=== PATIENT | male | born 1980 ===

== ENCOUNTER → 2024-10-07 | Outpatient (CLI) | payer OTHER ==
[2024-10-07 10:18] VITALS: BP 147/89; PULSE 87; RESP 17
--- NOTE | 2024-10-07 16:16 | P.PAINPG ---
PQRS Measure Charge Sheet Comment: HISTORY OF PRESENT ILLNESS: A 44 yr old male as a referral from the [facility] presents today w severe and chronic neck pain > 1 yr secondary to radiculopathy, spondylosis and facet arthropathy without myelopathy for evaluation. Pt states pain level is provoked at 7 /10 in intensity, constant, localized in the cervical spine, predominantly axial, sore in character w occasional shooting pain towards the L shoulder and BL hands. Pain is provoked by rotation. Pain is alleviated by physician guided home exercises 5 times weekly since Fall 2023, medications, manual massage, repositioning and rest . Cervical disability score at 22. PMH: OA, HTN, Migraine, MDD/ Anxiety PSH: Denies SH: Negative x3 FH: Non contributory All: See list Meds: See list incl Lyrica, Ibu REVIEW OF ORGAN SYSTEMS: CONSTITUTIONAL: No fevers or chills. No recent weight loss. NEUROLOGICAL: + numbness and tingling along the distal extremities. No seizure disorders or headaches. MUSCULOSKELETAL: + pain PSYCHIATRIC: Denies current depression or suicidal thoughts. Physical Examinations : Constitutional : Cooperative , not in acute distress . Neurologic : Cranial nerve II to XII intact. No focal neurological deficits. Psychiatric : alert & oriented x 3. Matching mood & appropriate affect. Judgment & insight intact. Musculoskeletal : Cervical Spine Motor strength in the deltoid and biceps: Normal right side. Normal Left side Motor strength biceps and the wrist extensors: Normal right side . Normal left side Motor strength in the triceps muscle: Normal right side. Normal left side Deep tendon reflexes: Normal at the biceps. Normal at Brachioradialis. Normal at triceps Vertebral body tenderness to deep palpation over C6 Cervical facet loading test: positive bilaterally Spurling test: positive L> R C6-C7 Neck distraction test: positive bilaterally Smiley sign: positive bilaterally Lumbar spine Motor strength lower extremities ,thigh and legs 5/5 Right side , 5/5 Left side Deep tendon reflexes : Normal Knee Jerk. Normal Ankle Jerk Vertebral body tenderness over Boss Test positive Lumbar facet Loading Test: positive Right / positive Left Range of motion of the lumbar spine Flexion 30 degrees, extension 10 degrees Straight Leg Raise test: Left/ Right positive at degrees Marie test: positive right / positive left. Severe tenderness over the Sacroiliac joint on the Right / Left sides Gaenslen test: positive bilaterally Seated flexion test: positive bilaterally. Sacral spine : Severe tenderness over the Sacroiliac joint: right side / left side Range of motion: Flexion of the lumbar spine <60 degrees Range of motion: Extension of the lumbar spine <20 degrees Gaenslen's Test positive Marie test: positive right side / left side Thigh Thrust Test Sacral Thrust Test Imaging: MRI non contrast cervical spine from 04/13/24 reviewed Assessment/ Plan : C4-C5/ C6-C7 radiculopathy Recommendation of TRUMAN C6-C7 #1. Risks, benefits of procedure discussed and patient verbalized understanding. Admits to anti- coagulant use or medical history of diabetes. Protocol for discontinuation/ continuation of medications jose procedure discussed. All questions answered. I have spent greater than 30 minutes on patient care today. Dr Kingsley was available by phone for the evaluation of this patient. The time was used to review the medical records including relevant urine studies and Prescription history (MAPs), review of the available imaging, evaluation and examination of the patient, coordination of care with the medical staff and if applicable referring physicians, as well as creation of the medical record Controlled Substance Measures - Controlled Substance Measures Is patient prescribed a controlled substance at discharge?: No
== END ==
LOC: PNWHC3 09:04
PROVIDERS: ATTEND Specialist
DX: M54.12 Radiculopathy, cervical region (principal)
CPT/HCPCS: 99203

== ENCOUNTER 2024-10-29 06:05 | Day surgery (SDC) | payer OTHER ==
[2024-10-28 08:31] VITALS: BMI 26.6
[~2024-10-29 06:05] MED LIST: LACTATED RINGERS 1,000 ML IV SCH
[2024-10-29 06:41] VITALS: RESP 18; TEMP 97.3
[2024-10-29] MEDS ORDERED: LACTATED RINGERS 1,000 ML IV SCH (07:00)
[2024-10-29] MEDS ORDERED: DEXAMETHASONE SOD PHOSPHATE 10 MG/ML 1 ML VIAL ONE (07:04)
[2024-10-29] MEDS ORDERED: IOPAMIDOL M200 10 ML VIAL ONE (07:04)
--- NOTE | 2024-10-29 07:15 | P.PCN ---
Date of Procedure: 10/29/24 Description of Procedure: Pre- and Post-operative Diagnosis: Cervical spondylosis without myelopathy, and cervical radiculopathy Procedure: C6-C7 Inter-Laminar Cervical Epidural Steroid Injection under biplanar fluoroscopy #1 Surgeon: Marcelino Mata Anesthesia: Local: 1% Lidocaine, IV sedation : None. Complications: None. Estimated blood loss: None Specimens removed: None Fluoroscopic image: saved to patient electronic medical records. Indications for Procedure: The patient has been suffering from neck pain and pain radiating to the upper extremity . Inadequate pain control with pharmacologic regimen. An inter-laminar approach cervical epidural steroid injection was scheduled for the patient. Procedure and Findings: The patient was seen and examined in the holding area. The written informed consent was obtained after explaining the risks, benefits, alternatives of the procedure to the patient. The patient was brought to the procedure room and was placed in the prone position on the operating table. A pillow was placed under the upper chest. Standard anesthesia monitoring was done through out the procedure. Timeout was completed. The skin preparation was done with ChloraPrep 1 and draping was done in usual sterile fashion. Sterile technique was observed throughout the procedure. Under fluoroscopic guidance, the C6-C7 inter-laminar space was identified. 3 ml of 1% Lidocaine was injected with a 25 gauge needle to achieve adequate local a nesthesia of the skin and subcutaneous tissue. A 20 gauge, 3.5 inch Tuohy type epidural needle was placed and gradually advanced up to the epidural space using loss of resistance technique and fluoroscopic guidance. No paresthesia was noted. A negative aspiration was confirmed and then 1 ml [id number] was injected. A good dye spread was seen in the epidural space and it was negative for any intrathecal, intraneural or intravascular spread. A total of 5 ml solution containing 10 mg Dexamethasone, and 4 ml preservative-free Normal Saline was injected slowly with intermittent aspiration.. The needle was removed intact, area was cleaned and bandage was applied. Disposition : The patient tolerated the procedure very well. The patient was transferred to the recovery room and remained stable until discharged home. The patient was given detailed discharge instructions for bleeding, infection, increased pain at the injection site, and was advised to seek immediate medical attention should significant side effects develop. The patient will be followed up with our Pain [facility] within 4 weeks for follow-up visit.
[2024-10-29 07:30] VITALS: BP 130/84; PULSE 70
--- NOTE | 2024-10-29 07:52 | FL ---
EXAMINATION TYPE: FL guided pain mgmt statistic DATE OF EXAM: 10/29/2024 CLINICAL INDICATION: Male, 44 years old with history of MARY; PHH, neck pain. TECHNIQUE: Fluoroscopy. COMPARISON: None. FINDINGS: Fluoroscopic guidance was provided during pain relief procedure performed by Dr. Leone . A total of 7.0 seconds of fluoroscopic time was utilized during the procedure and 3 spot images are acquired. Images acquired shows needle localization in the cervical spine with some degenerative yu nge present. Total DAP: [id number] mGym2. IMPRESSION: As Above. [facility], , 10/29/2024 7:50 AM
== END 2024-10-29 07:47 | disposition home or self-care (01) ==
LOC: ORPAIN 06:05
DX: M47.812 Spondylosis without myelopathy or radiculopathy, cervical region (principal); I10 Essential (primary) hypertension; M19.90 Unspecified osteoarthritis, unspecified site; F43.10 Post-traumatic stress disorder, unspecified; M92.529 Juvenile osteochondrosis of tibia tubercle, unspecified leg; Z79.899 Other long term (current) drug therapy
CPT/HCPCS: 62321; J1100; Q9966

== ENCOUNTER → 2024-11-13 | Outpatient (CLI) | payer OTHER ==
[2024-11-13 09:44] VITALS: BP 120/81; PULSE 76; RESP 18; TEMP 96.9
--- NOTE | 2024-11-13 15:47 | P.PAINPG ---
Objective - Vital Signs Vital signs: Vital Signs Temp 96.9 F L 11/13/24 09:37 Pulse 76 11/13/24 09:37 Resp 18 11/13/24 09:37 BP 120/81 11/13/24 09:37 Pulse Ox 98 11/13/24 09:37 FiO2 Intake & Output 11/12/24 11/13/24 11/13/24 18:59 06:59 18:59 Weight 84.368 kg PQRS Measure Charge Sheet Mode of Arrival: Ambulatory Comment: HISTORY OF PRESENT ILLNESS: A 44 yr old male presents today w severe and chronic neck pain > 1 yr secondary to radiculopathy, spondylosis and facet arthropathy without myelopathy for evaluation s/p TRUMAN C6-C7 #1. Pt states he experienced 50% pain relief x 2 wks s/p procedure. Pt states pain level is provoked at 2 /10 in intensity, constant, localized in the cervical spine, predominantly axial, sore in character w occasional shooting pain towards the L shoulder and BL hands. Pain is provoked by rotation. Pain is alleviated by physician guided home exercises 5 times weekly since Fall 2023, medications, manual massage, repositioning and rest . Interventional procedures include TRUMAN C6-C7 x1 Medications include Lyrica, Ibu REVIEW OF ORGAN SYSTEMS: CONSTITUTIONAL: No fevers or chills. No recent weight loss. NEUROLOGICAL: + numbness and tingling along the distal extremities. No seizure disorders or headaches. MUSCULOSKELETAL: + pain PSYCHIATRIC: Denies current depression or suicidal thoughts. Physical Examinations : Constitutional : Cooperative , not in acute distress . Neurologic : Cranial nerve II to XII intact. No focal neurological deficits. Psychiatric : alert & oriented x 3. Matching mood & appropriate affect. Judgment & insight intact. Musculoskeletal : Cervical Spine Motor strength in the deltoid and biceps: Normal right side. Normal Left side Motor strength biceps and the wrist extensors: Normal right side . Normal left side Motor strength in the triceps muscle: Normal right side. Normal left side Deep tendon reflexes: Normal at the biceps. Normal at Brachioradialis. Normal at triceps Vertebral body tenderness to deep palpation over C6 Cervical facet loading test: positive bilaterally Spurling test: positive L> R C6-C7 Neck distraction test: positive bilaterally Smiley sign: positive bilaterally Lumbar spine Motor strength lower extremities ,thigh and legs 5/5 Right side , 5/5 Left side Deep tendon reflexes : Normal Knee Jerk. Normal Ankle Jerk Vertebral body tenderness over Boss Test positive Lumbar facet Loading Test: positive Right / positive Left Range of motion of the lumbar spine Flexion 30 degrees, extension 10 degrees Straight Leg Raise test: Left/ Right positive at degrees Marie test: positive right / positive left. Severe tenderness over the Sacroiliac joint on the Right / Left sides Gaenslen test: positive bilaterally Seated flexion test: positive bilaterally. Sacral spine : Severe tenderness over the Sacroiliac joint: right side / left side Range of motion: Flexion of the lumbar spine <60 degrees Range of motion: Extension of the lumbar spine <20 degrees Gaenslen's Test positive Marie test: positive right side / left side Thigh Thrust Test Sacral Thrust Test Imaging: MRI non contrast cervical spine from 04/13/24 reviewed Assessment/ Plan : C4-C5/ C6-C7 radiculopathy Recommendation of medication management Diclofenac gel apply to AA BID for pain, Disp 1 tube w 1 RF. All questions answered. I have spent greater than 30 minutes on patient care today. Dr Kingsley was available by phone for the evaluation of this patient. The time was used to review the medical records including relevant urine studies and Prescription history (MAPs), review of the available imaging, evaluation and examination of the patient, coordination of care with the medical staff and if applicable referring physicians, as well as creation of the medical record - Pain Location Lower Back Non-Pharmacological Interventions: Heat Pharmacological Interventions: Medication PQRS Narrative: Blood Pressure 120/81 Pain Intensity [Lower Back] 1 Scale Used Numeric (1 - 10) Hx Alcohol Use (MH) No Home Medications: Ambulatory Orders Fremanezumab-Vfrm [Ajovy Syringe] 225 mg SQ Q30D 10/07/24 Losartan [Cozaar] 50 mg PO DAILY 10/07/24 Prochlorperazine [Compazine] 5 mg PO Q8HR PRN 10/07/24 Sertraline [Zoloft] 100 mg PO DAILY 10/07/24 Ubrogepant [Ubrelvy] 100 mg PO DIRECTED PRN 10/07/24 busPIRone HCl [Buspar] 10 mg PO BID 10/07/24 diphenhydrAMINE [Benadryl] 25 mg PO HS PRN 10/07/24 traZODone HCL 100 mg PO HS 10/07/24 Pregabalin [Lyrica] 75 mg PO DAILY 10/23/24 Unk Omeprazole 1 tab PO AC-TID 10/23/24 amLODIPine 10 mg PO DAILY 10/23/24 Diclofenac Sodium Gel [Voltaren 1% Gel] 50 gm TOPICAL BID 30 Days #1 each 11/13/24 Controlled Substance Measures - Controlled Substance Measures Is patient prescribed a controlled substance at discharge?: No
== END ==
LOC: PNWHC3 09:18
PROVIDERS: ATTEND Specialist
DX: M54.12 Radiculopathy, cervical region (principal); F12.90 Cannabis use, unspecified, uncomplicated
CPT/HCPCS: 99212

== ENCOUNTER → 2025-01-21 | Outpatient (CLI) | payer OTHER ==
[2025-01-21 14:37] VITALS: BP 132/86; PULSE 92; RESP 12; TEMP 98.1
--- NOTE | 2025-01-21 15:28 | P.SLEEP ---
History of Present Illness H&P Date: 01/21/25 This is a 44-year-old , [place] ancestry, who has served in the [employer] for a total of 20 years and the patient has been in combat operations overseas. For now, the patient has chronic anxiety/depression/PTSD that has been managed through the [facility]. The patient suffers from migraines and he also has chronic cervical degenerative disc disease with chronic neck pain and radiculopathy. He suffers from insomnia in addition. His current medications include Zoloft for PTSD and depression. The patient was also given trazodone and diphenhydramine for sleep induction. He takes Lyrica for chronic neuropathy and pain and Ajovy for migraines. He was also placed on propranolol for migraine prophylaxis. The patient feels fatigued and tired all the time. He snores and he has been told to quit breathing at night. He describes his sleep to be quite fragmented. He goes to bed at around 12:30 AM and he gets out of bed at 5:30 AM. His sleep is broken and he wakes up on multiple occasions sometimes choking and gasping for air. He is restless during sleep. He sweats. He has flashbacks and nightmares during which he talks and this occurs approximately 2-3 times a week. He has also experienced sleep paralysis where he has noted to be awake but cannot move and this typically occurs around once or twice a week. He sleeps on his side and stomach. Does not take any naps during the day. His current [place] score is at 7. No hallucinations. No cataplexy. No reported substance abuse. He does not smoke. Does not use alcohol. No history of any head trauma. No 69 motor vehicle accidents because of feeling drowsy or sleepy. No reported nocturia. No palpitations or heartburn or shortness of breath during sleep. Is coming in for further advice regarding his sleep quality and is concerned about sleep apnea in addition. Review of Systems Constitutional: Reports daytime sleepiness, Reports fatigue Eyes: denies as per HPI, denies blurred vision, denies bulging eye, denies decreased vision, denies diplopia, denies discharge, denies dry eye, denies irritation, denies itching, denies pain, denies photophobia, denies loss of peripheral vision, denies loss of vision, denies tunnel vision/blind spots Ears: deny: decreased hearing, ear discharge, earache, tinnitus Ears, nose, mouth and throat: Reports as per HPI Breasts: absent: as per HPI, gynecomastia Cardiovascular: Reports as per HPI Respiratory: Reports as per HPI Gastrointestinal: Reports as per HPI Genitourinary: Reports as per HPI Musculoskeletal: Reports as per HPI, Reports leg numbness/tingling Musculoskeletal: absent: ankle pain, ankle stiffness, ankle swelling, as per HPI, elbow pain, elbow stiffness, elbow swelling, foot pain, foot stiffness, foot swelling, hand pain, hand stiffness, hand swelling, hip pain, hip stiffness, hip swelling, knee pain, knee stiffness, knee swelling, shoulder pain, shoulder stiffness, shoulder swelling, wrist pain, wrist stiffness, wrist swelling Integumentary: Reports as per HPI Neurological: Reports migraines Psychiatric: Reports anxiety, Reports change in sleep habits, Reports d epression, Reports hypersomnia, Reports sleep disturbances Endocrine: Reports as per HPI, Reports fatigue Hematologic/Lymphatic: Reports as per HPI Allergic/Immunologic: Reports as per HPI Past Medical History Past Medical History: GERD/Reflux, Hypertension, Osteoarthritis (OA) Additional Past Medical History / Comment(s): nerve pain from neck goes down back and arms. migraines. has appt for sleep study History of Any Multi-Drug Resistant Organisms: None Reported Additional Past Surgical History / Comment(s): rt ankle reconstruction Past Anesthesia/Blood Transfusion Reactions: No Reported Reaction Past Psychological History: Anxiety, Depression, PTSD Smoking Status: Vaper Past Alcohol Use History: None Reported Additional Past Alcohol Use History / Comment(s): 1 vape q 10 days. no alcohol since 09/2024 Additional Drug Use History / Comment(s): cbd vape. pt aware not to use 24 hrs before procedure. - Past Family History Father Family Medical History: CVA/TIA, Diabetes Mellitus Mother Family Medical History: No Reported History Medications and Allergies Home Medications Medication Instructions Recorded Confirmed Type Fremanezumab-Vfrm [Ajovy Syringe] 225 mg SQ Q30D 10/07/24 01/21/25 History Losartan [Cozaar] 50 mg PO DAILY 10/07/24 01/21/25 History Prochlorperazine [Compazine] 5 mg PO Q8HR PRN 10/07/24 01/21/25 History Sertraline [Zoloft] 100 mg PO DAILY 10/07/24 01/21/25 History busPIRone HCl [Buspar] 10 mg PO BID 10/07/24 01/21/25 History diphenhydrAMINE [Benadryl] 25 mg PO HS PRN 10/07/24 01/21/25 History traZODone HCL 100 mg PO HS 10/07/24 01/21/25 History Pregabalin [Lyrica] 75 mg PO DAILY 10/23/24 01/21/25 History amLODIPine 10 mg PO DAILY 10/23/24 01/21/25 History Diclofenac Sodium Gel [Voltaren 1% 50 gm TOPICAL BID 30 Days #1 each 11/13/24 01/21/25 Rx Gel] Famotidine [Pepcid] 20 mg PO DAILY 01/21/25 01/21/25 History Pantoprazole [Protonix] 40 mg PO BID 01/21/25 01/21/25 History Propranolol HCl [Inderal] 60 mg PO DAILY 01/21/25 01/21/25 History Allergies Allergy/AdvReac Type Severity Reaction Status Date / Time No Known Allergies Allergy Verified 10/29/24 06:41 Physical Exam Vitals: Vital Signs Temp Pulse Resp BP Pulse Ox 01/21/25 14:36 98.1 F 92 12 132/86 97 Intake and Output 01/20/25 01/21/25 01/21/25 22:59 06:59 14:59 Other: Weight 87.543 kg The patient appeared well nourished and normally developed. Vital signs as documented. The patient has a body mass index of 27.6. His current weight is 193 Head exam is unremarkable. No scleral icterus or corneal arcus noted. Neck is without jugular venous distension, thyromegaly, or carotid bruits. Carotid upstrokes are brisk bilaterally. Mallampati class IV with crowding of the posterior pharynx. Lungs are clear to auscultation and percussion. Cardiac exam reveals the PMI to be normally sized and situated. Rhythm is regular. First and second heart sounds normal. No murmurs, rubs or gallops. Abdominal exam reveals normal bowel sounds, no masses, no organomegaly and no aortic enlargement. Extremities are nonedematous and both femoral and pedal pulses are normal. Examination of the skin revealed no evidence of significant rashes, suspicious appearing nevi or other concerning lesions. Neurologically, the patient is awake and alert and the patient does not have any focal neurological deficit. Cranial nerves are essentially intact. Assessment and Plan Plan: Chronic fatigue/daytime sleepiness with an [place] score of 7 Chronic sleep onset insomnia, essential related to his underlying mental health and psychiatric/mood disorders which include a combination of anxiety and depression and PTSD. PTSD due to service and combat operations. The patient is a and served in the [employer] for a total of 20 years. He continues to have nightmares and occasional flashbacks. Noted the patient was also given propranolol for migraine prophylaxis which could potentially contribute to development of nightmares. He is currently on Zoloft. Migraines, currently on a combination of Ajovy and propranolol Chronic cervical disc disease and radiculopathy with ongoing pain, maintained on Lyrica Osteoarthritis Hypertension Acid reflux Plan The patient sleep disturbances and poor sleep quality is multifactorial. Of concern is history of PTSD which by itself can cause significant sleep disturbances specially with associated with obstructive sleep apnea. The patient has chronic anxiety, nightmares, sleep disturbance and he has utilized sleep aids including diphenhydramine and trazodone and he continues to have significantly disrupted sleep pattern. Noted PTSD by itself can cause hyperarousal and sleep fragmentation and disruption in normal sleep architecture and this in turn can contribute to the onset and development of obstructive sleep apnea. Based on all this, the patient needs to be further studied in polysomnography will be ordered. Meanwhile, he has other comorbidities which include migraine. Utilization of beta-shu such as propranolol may contribute to his nightmares in addition. The patient was asked to maintain a regular sleep schedule, optimize sleep hygiene measures. He will be kept on the same medication and a polysomnography will be ordered to investigate his condition further I will make further recommendations based on those results. Sleep Note - Sleep Data ESS Total: 7 - Sleep Note Sleep Note: Temperature: 98.1 F Pulse Rate: 92 Respiratory Rate: 12 Blood Pressure: 132/86 SpO2: 97 Height: 5 ft 10 in Weight: 87.543 kg BMI: Neck Circumference: 17
== END ==
LOC: 3 N SLEEP 13:40
PROVIDERS: ATTEND Internal Medicine Critical Care Medicine
DX: G47.00 Insomnia, unspecified (principal); R53.83 Other fatigue; F32.A Depression, unspecified; F41.9 Anxiety disorder, unspecified; F43.10 Post-traumatic stress disorder, unspecified; M50.10 Cervical disc disorder with radiculopathy, unspecified cervical region; M19.90 Unspecified osteoarthritis, unspecified site; I10 Essential (primary) hypertension; K21.9 Gastro-esophageal reflux disease without esophagitis; F12.90 Cannabis use, unspecified, uncomplicated; Z79.899 Other long term (current) drug therapy
CPT/HCPCS: 99211

== ENCOUNTER 2025-03-10 19:57 | Outpatient (CLI) | payer OTHER ==
--- NOTE | 2025-03-21 00:08 | P.PCN ---
Date of Procedure: 03/10/25 Operative Findings: Polysomnography report Pertinent history This is a 44-year-old , [place] ancestry, who has served in the [employer] for a total of 20 years and the patient has been in combat operations overseas. For now, the patient has chronic anxiety/depression/PTSD that has been managed through the [facility]. The patient suffers from migraines and he also has chronic cervical degenerative disc disease with chronic neck pain and radiculopathy. He suffers from insomnia in addition. His current medications include Zoloft for PTSD and depression. The patient was also given trazodone and diphenhydramine for sleep induction. He takes Lyrica for chronic neuropathy and pain and Ajovy for migraines. He was also placed on propranolol for migraine prophylaxis. The patient feels fatigued and tired all the time. He snores and he has been told to quit breathing at night. He describes his sleep to be quite fragmented. He goes to bed at around 12:30 AM and he gets out of bed at 5:30 AM. His sleep is broken and he wakes up on multiple occasions sometimes choking and gasping for air. He is restless during sleep. He sweats. He has flashbacks and nightmares during which he talks and this occurs approximately 2-3 times a week. He has also experienced sleep paralysis where he has noted to be awake but cannot move and this typically occurs around once or twice a week. He sleeps on his side and stomach. Does not take any naps during the day. His current Bicknell score is at 7. No hallucinations. No cataplexy. No reported substance abuse. He does not smoke. Does not use alcohol. No history of any head trauma. No 69 motor vehicle accidents because of feeling drowsy or sleepy. No reported nocturia. No palpitations or heartburn or shortness of breath during sleep. Is coming in for further advice regarding his sleep quality and is concerned about sleep apnea in addition. Physical findings Body mass index is 27.7. Weight is 193 Technical description The patient was studied using a standard complex polysomnography protocol that included recording of the Lead II EKG, Central, occipital and frontal EEG, right and left outer canthus EOG, submental EMG, right and left anterior tibialis EMG, respiratory airflow by thermocouple and or pressure/flow transducer, respiratory efforts by abdominal and thoracic PVDF belts, oxygen saturation by cable oximetry. Position by observation synchronized the PSG. Equipment used: [employer]. Sleep architecture The total recording duration was 385.5 minutes. The total sleep time was 338 minutes. The overall sleep efficiency was 87.7%. The wake after sleep onset time was 31 minutes. Latency to sleep onset was 11 minutes. Latest REM sleep was 132 minutes. The sleep architecture was characterized by 14.8% stage I sleep, 65.5% stage II sleep, 0% stage III sleep and a total of 19.7% REM sleep. The total arousal index was 20.1 Respiratory analysis The respiratory analysis demonstrated total of 97 obstructive events of which 28 obstructive apneas, 2 were mixed apneas and 67 obstructive hypopneas. The resulting AHI was 15.4 and the disease was worse during REM sleep. Noted the AHI during REM was as high as 27.1. Oxygenation analysis Baseline pulse ox was 96% while awake. Lowest oxygen saturation was 82% and the patient spent approximately 4.6 minutes of sleep time which below pulse ox of 89% accounting for 1.2% of the overall recording duration. Oxygen desaturation were predominantly occurring during REM sleep Cardiac events The patient's average heart rate was 75, minimum heart rate was 71 and a maximum heart of 79 Movement events There was a total of 5 periodic limb movement activity with an index of 0.9. None of those are associated with arousals Arousal events The patient had total of 113 arousals with an index of 20.1. The respiratory arousal index was 9.1 Assessment Obstructive sleep apnea, mild in severity with an AHI of 15.4, worse during REM sleep with an AHI of 27 during REM. Mild nocturnal oxygen desaturations Adequate sleep efficiency of 87.7% Delayed sleep onset Chronic fatigue/daytime sleepiness with an Bicknell score of 7 Chronic sleep onset insomnia, essential related to his underlying mental health and psychiatric/mood disorders which include a combination of anxiety and depression and PTSD. PTSD due to service and combat operations. The patient is a and served in the [employer] for a total of 20 years. He continues to have nightmares and occasional flashbacks. Noted the patient was also given propranolol for migraine prophylaxis which could potentially contribute to development of nightmares. He is currently on Zoloft. Migraines, currently on a combination of Ajovy and propranolol Chronic cervical disc disease and radiculopathy with ongoing pain, maintained on Lyrica Osteoarthritis Hypertension Acid reflux Plan The patient sleep disturbances and poor sleep quality is multifactorial. Of concern is history of PTSD which by itself can cause significant sleep disturbances specially with associated with obstructive sleep apnea. The patient has chronic anxiety, nightmares, sleep disturbance and he has utilized sleep aids including diphenhydramine and trazodone and he continues to have significantly disrupted sleep pattern. Noted PTSD by itself can cause hyperarousal and sleep fragmentation and disruption in normal sleep architecture and this in turn can contribute to the onset and development of obstructive sleep apnea. Based on all this, the patient needs to be further studied in polysomnography will be ordered. Meanwhile, he has other comorbidities which include migraine. Utilization of beta-shu such as propranolol may contribute to his nightmares in addition. The patient was asked to maintain a regular sleep schedule, optimize sleep hygiene measures. He will be kept on the same medication Polysomnography showed also obstructive sleep apnea. Will discuss the need for CPAP therapy to patient. Will proceed with treatment if the patient is willing to undertake therapy. Nevertheless, as stated, the overall disease severity is mild and the benefits of CPAP therapy may be essentially limited. However, it is worthwhile to give the patient a trial and the patient will be asked to come into the sleep center to undergo CPAP titration if he is willing to undertake the treatment.
== END 2025-03-11 05:30 | disposition home or self-care (01) ==
LOC: 3 N SLEEP 19:57
PROVIDERS: ATTEND Internal Medicine Critical Care Medicine
DX: G47.33 Obstructive sleep apnea (adult) (pediatric) (principal); F43.10 Post-traumatic stress disorder, unspecified; F32.A Depression, unspecified; F41.9 Anxiety disorder, unspecified; F39 Unspecified mood [affective] disorder; G43.909 Migraine, unspecified, not intractable, without status migrainosus; M50.10 Cervical disc disorder with radiculopathy, unspecified cervical region; M19.90 Unspecified osteoarthritis, unspecified site; I10 Essential (primary) hypertension; K21.9 Gastro-esophageal reflux disease without esophagitis; R53.82 Chronic fatigue, unspecified
CPT/HCPCS: 95810

== ENCOUNTER → 2025-03-25 | Day surgery (SDC) | payer OTHER ==
[2025-02-24 09:54] VITALS: BMI 27.3
[~2025-03-25] MED LIST changes: +LIDOCAINE 1% (10MG/ML) FOR IV START INTRADERMA PRN
== END ==
LOC: ORWHC2ENDO 12:25
PROVIDERS: ATTEND Internal Medicine Gastroenterology
DX: K21.9 Gastro-esophageal reflux disease without esophagitis (principal); Z53.9 Procedure and treatment not carried out, unspecified reason